=== PATIENT | male | born 1995 | race Caucasian/White ===

== ENCOUNTER 2018-07-24 16:28 | Emergency (ER) | payer SELFPAY ==
[2018-07-24] MEDS ORDERED: Lidocaine 1% (PF) 30 ML VIAL ONE ×2 (16:47→16:57)
[2018-07-24] MEDS ORDERED: Adacel (T-DAP) 0.5 ML SYRINGE ONE (16:47)
--- NOTE | 2018-07-24 17:43 | RAD ---
LEFT HAND THREE VIEWS: 07/24/18 INDICATION: History of trauma with left hand pain. COMPARISON: None. FINDINGS: No acute fracture or subluxation is evident. There is a radiopaque density involving the soft tissues overlying the dorsal aspect of the left small finger middle phalanx may reflect a small radiopaque f oreign body. Recommend correlation. IMPRESSION: No acute osseous abnormality. Possible radiopaque foreign body within the dorsal soft tissues of the left small finger. POS: [facility]
[2018-07-24] MEDS ORDERED: Bacitracin Zinc 1 Packet ONE (18:05)
== END 2018-07-24 18:35 | disposition home or self-care (01) ==
LOC: ERS 16:28
DX: S61.317A Laceration without foreign body of left little finger with damage to nail, initial encounter (principal); F17.210 Nicotine dependence, cigarettes, uncomplicated; W27.0XXA Contact with workbench tool, initial encounter
CPT/HCPCS: 12001; 90471; 90715; J2001

== ENCOUNTER 2021-06-12 08:44 | Emergency (ER) | payer SELFPAY ==
[2021-06-12 20:25] LABS: SARS-CoV-2 PCR by NAA DETECTED (NotDetected)
== END 2021-06-12 09:36 | disposition home or self-care (01) ==
LOC: ERS 08:44
DX: U07.1 COVID-19 (principal); F17.210 Nicotine dependence, cigarettes, uncomplicated
CPT/HCPCS: 99283; U0003; U0005

== ENCOUNTER 2025-01-12 20:15 | Emergency (ER) | payer SELFPAY ==
[2025-01-12] MEDS ORDERED: Ondansetron PF 4 MG/2 ML Vial ONE (21:05)
[2025-01-12] MEDS ORDERED: Ketorolac Tromethamine 30 MG (1 mL) VIAL ONE (21:05)
[2025-01-12 21:54] LABS: #Basophils 0.11 10x3/uL (0.0-0.2); #Eosinophils 0.39 10x3/uL (0.0-0.7); #Monocytes 0.75 10x3/uL (0.11-0.59); #Neutrophils 4.60 10x3/uL (1.40-6.50); %Basophils 1.2 % (0.0-1.0); %Eosinophils 4.3 % (0.0-10.0); %Lymphocytes 35.2 % (21.0-51.0); %Monocytes 8.3 % (0.0-10.0); %Neutrophils 50.7 % (42.0-75.0); Hematocrit 43.7 % (42.0-52.0); Hemoglobin 14.4 g/dL (14.0-18.0); Mean Corpuscular Hemoglobin 28.2 pg (27.0-31.0); Mean Corpuscular Volume 85.5 fL (78.0-98.0); Platelet Count 335 10x3/uL (130-400); Red Blood Cell (RBC) Count 5.11 mill/uL (4.70-6.10); White Blood Cell (WBC) Count 9.07 10x3/uL (4.8-10.8)
[2025-01-12 22:08] LABS: ALT (SGPT) 15 U/L (Less than 45); AST (SGOT) 24 U/L (11-34); Albumin 5.0 g/dL (3.1-4.5); Alkaline Phosphatase 39 U/L (40-110); Anion Gap 15 mmol/L (10-20); BUN (Urea Nitrogen) 12 mg/dL (8.9-20.6); Bilirubin, Total 0.8 mg/dL (0.3-1.2); Calc. Creatinine Clearance 0 mL/min (70-130); Calcium 9.6 mg/dL (7.8-10.44); Carbon Dioxide 24 mmol/L (22-29); Chloride 102 mmol/L (98-107); Globulin 3.2 g/dL (2.4-3.5); Glucose 104 mg/dL (70-105); Lipase 16 U/L (8-78); Potassium 3.4 mmol/L (3.5-5.1); Sodium 138 mmol/L (136-145)
[2025-01-12 22:11] LABS: Bacteria/HPF None Seen HPF (None Seen); CAUTI Indications for Culture Pelvic or flank pain; Glucose, Urine (Dipstick) Normal (Negative); Leukocyte Negative Leu/uL (Negative); Protein, Urine (Dipstick) 30 mg/dL (Neg-Trace); Specific Gravity, Urine 1.029 (1.002-1.036); WBC/HPF 0-3 HPF (0-3)
[2025-01-12 22:13] LABS: Urine Culture Reflex No No
== END 2025-01-12 22:24 | disposition home or self-care (01) ==
LOC: ERS 20:15
DX: N20.0 Calculus of kidney (principal)
CPT/HCPCS: 74176; 80053; 81001; 83690; 85025; 96374; 96375; 96376; J1885; J2405; J3010